=== PATIENT | male | born 1990 | race African-American/Black ===

== ENCOUNTER 2018-11-09 10:40 | Emergency (ER) | payer SELFPAY ==
--- NOTE | 2018-11-09 11:36 | ER Document Report ---
ED General - General Chief Complaint: Foot Pain Stated Complaint: TOE PAIN Time Seen by Provider: 11/09/18 11:30 Primary Care Provider: JANET PEARCE [Primary Care Provider] - Follow up as needed TRAVEL OUTSIDE OF THE [place] IN LAST 30 DAYS: No - HPI Patient complains to provider of: Bilateral toe pain Notes: Patient coming in complaining of bilateral pain in his bilateral feet between the webbing of his toes bilaterally. Patient states works at [employer] feels constantly has water on his feet patient states difficult time having his feet dry concerned that they are getting infected states some cracks in the skin with some bleeding. Patient denies history of diabetes or any other immunocompromise state. Patient denies any trauma to the area denies fevers chills nausea vomiting diarrhea. - Related Data Allergies/Adverse Reactions: No Known Allergies Allergy (Verified 11/09/18 10:41) Past Medical History - Social History Smoking Status: Unknown if Ever Smoked Family History: Reviewed & Not Pertinent Pulmonary Medical History: Denies: Hx Asthma Endocrine Medical History: Denies: Hx Diabetes Mellitus Type 2, Hx Hypothyroidism GI Medical History: Denies: Hx Gastritis, Hx Gastroesophageal Reflux Disease Skin Medical History: Reports Hx MRSA - Immunizations Immunizations up to date: Yes Hx Diphtheria, Pertussis, Tetanus Vaccination: Yes Review of Systems - Review of Systems Constitutional: No symptoms reported EENT: No symptoms reported Cardiovascular: No symptoms reported Respiratory: No symptoms reported Gastrointestinal: No symptoms reported Genitourinary: No symptoms reported Male Genitourinary: No symptoms reported Musculoskeletal: No symptoms reported Skin: Other - Bilateral foot complaint Hematologic/Lymphatic: No symptoms reported Neurological/Psychological: No symptoms reported -: Yes All other systems reviewed and negative Physical Exam - Vital signs Vitals: Temp Pulse Resp BP Pulse Ox 98.3 F 83 17 153/86 H 99 11/09/18 10:57 11/09/18 10:57 11/09/18 10:57 11/09/18 10:57 11/09/18 10:57 Interpretation: Normal - General General appearance: Appears well, Alert - HEENT Head: Normocephalic, Atraumatic Eyes: Normal Pupils: PERRL - Respiratory Respiratory status: No respiratory distress Chest status: Nontender Breath sounds: Normal Chest palpation: Normal - Cardiovascular Rhythm: Regular Heart sounds: Normal auscultation Murmur: No - Abdominal Inspection: Normal Distension: No distension Bowel sounds: Normal Tenderness: Nontender Organomegaly: No organomegaly - Back Back: Normal, Nontender - Extremities General upper extremity: Normal inspection, Nontender, Normal color, Normal ROM, Normal temperature General lower extremity: Nontender, Normal color, Normal ROM, Normal temperature, Normal weight bearing. No: Normal inspection - Inspection of the skin between the toes bilateral feet shows signs concerns of possible fungal infection with discoloration of the skin some excoriation and cracking of the skin - Neurological Neuro grossly intact: Yes Cognition: Normal Orientation: AAOx4 Fritz Coma Scale Eye Opening: Spontaneous Fritz Coma Scale Verbal: Oriented Fritz Coma Scale Motor: Obeys Commands Fritz Coma Scale Total: 15 Speech: Normal Motor strength normal: LUE, RUE, LLE, RLE Sensory: Normal - Psychological Associated symptoms: Normal affect, Normal mood - Skin Skin Temperature: Warm Skin Moisture: Dry Skin Color: Normal Course - Re-evaluation Re-evalutation: 11/09/18 15:05 Patient was to have a fungal infection patient will be treated with Lotrimin recommended Goldbond powder to keep his feet dry. Patient requesting work note - Vital Signs Vital signs: Temp Pulse Resp BP Pulse Ox 98.0 F 73 16 135/78 H 99 11/09/18 13:10 11/09/18 13:10 11/09/18 13:10 11/09/18 13:10 11/09/18 13:10 Discharge - Discharge Clinical Impression: Athletes foot Qualifiers: Laterality: bilateral Qualified Code(s): B35.3 - Tinea pedis Disposition: HOME, SELF-CARE Instructions: Athletes Foot ([facility]) Additional Instructions: Please keep your feet clean and dry I would recommend instilling Goldbond powder into your socks to aid with the final flexion that we see on also recommend applying Lotrimin cream once a day for the next 4 weeks Prescriptions: Clotrimazole 1% Topical [Lotrimin 1% Topical Solution] 1 applic TP DAILY #10 ml Menthol [Gold [place] Medicated Foot] 283 gm TP DAILY #1 bottle Forms: Return to Work Referrals: LOCALMD,NO [Primary Care Provider] - Follow up as needed
[2018-11-09 13:11] VITALS: BP 135/78
== END 2018-11-09 13:23 | disposition home or self-care (01) ==
LOC: ER 10:40
DX: B35.3 Tinea pedis (principal); Z86.14 Personal history of Methicillin resistant Staphylococcus aureus infection
CPT/HCPCS: 99283

== ENCOUNTER 2020-06-06 16:10 | Emergency (ER) | payer SELFPAY ==
[2020-06-06 16:29] VITALS: BP 133/73
--- NOTE | 2020-06-06 16:54 | ER Document Report ---
ED Extremity Problem, Lower - General Chief Complaint: Foot Pain Stated Complaint: FOOT PAIN Time Seen by Provider: 06/06/20 16:36 Primary Care Provider: SUZE VALENCIA DPM [ACTIVE STAFF] - Follow up as needed JANET PEARCE [Primary Care Provider] - Follow up as needed Mode of Arrival: Ambulatory Information source: Patient Notes: 29-year-old male presented to ED for complaint of athlete's foot to both feet for a while now. He states he is been using bleach water alcohol and Epson salt and they do not seem to be getting any better. He states he has not tried any [id number] athlete's foot medications. He states he does stand on his feet a lot and states that it hurts when he stands on his feet all day with the athlete's foot. REVIEW OF SYSTEMS: CONSTITUTIONAL : Denies fever, chills, or sweats. Denies recent illness. SKIN: Whitish scaly, fissuring, maceration of the interdigital and sub-digital areas on both feet HEMATOLOGIC : Denies easy bruising or bleeding. LYMPHATIC: Denies swollen, enlarged glands. NEUROLOGICAL: Denies altered mental status or loss of consciousness. Denies headache. Denies weakness or paralysis or loss of use of either side. Denies problems with gait or speech. Denies sensory or motor loss. PSYCHIATRIC: Denies anxiety or stress or depression. ALL OTHER SYSTEMS REVIEWED AND NEGATIVE. PHYSICAL EXAMINATION: GENERAL: Well-appearing, well-nourished and in no acute distress. HEAD: Atraumatic, normocephalic. EYES: Pupils equal round extraocular movements intact, conjunctiva are normal. ENT: Nares patent NECK: Normal range of motion LUNGS: No respiratory distress Musculoskeletal: Normal range of motion NEUROLOGICAL: Normal speech, normal gait. PSYCH: Normal mood, normal affect. SKIN: Whitish scaly, fissuring, maceration of the interdigital and sub-digital areas on both feet TRAVEL OUTSIDE OF THE [place] IN LAST 30 DAYS: No - HPI Patient complains to provider of: Pain Location: Foot Occurred: Other - Several weeks Onset/Duration: Persistent Quality of pain: Burning Severity: Mild Pain Level: 2 Context: Wearing shoes Recent injury: No Associated symptoms: Other - Whitish scaly, fissuring, maceration of the interdigital and sub-digital areas on both feet Exacerbated by: Hanging down, Movement, Walking Relieved by: Nothing - Related Data Allergies/Adverse Reactions: No Known Allergies Allergy (Verified 11/09/18 10:41) Past Medical History - General Information source: Patient - Social History Smoking Status: Current Every Day Smoker Cigarette use (# per day): Yes - 1/3 pack/day Smoking Education Provided: Yes - Diminished Frequency of alcohol use: Occasional Drug Abuse: None Family History: Reviewed & Not Pertinent Patient has suicidal ideation: No Patient has homicidal ideation: No - Past Medical History Cardiac Medical History: Reports: None Pulmonary Medical History: Reports: None EENT Medical History: Reports: None Neurological Medical History: Reports: None Endocrine Medical History: Reports: None Renal/ Medical History: Reports: None Malignancy Medical History: Reports None GI Medical History: Reports: None Musculoskeletal Medical History: Reports None Skin Medical History: Reports Hx MRSA Psychiatric Medical History: Reports: None Traumatic Medical History: Reports: None Infectious Medical History: Reports: None Surgical Hx: Negative Past Surgical History: Reports: None - Immunizations Immunizations up to date: Yes Hx Diphtheria, Pertussis, Tetanus Vaccination: Yes Physical Exam - Vital signs Vitals: Temp Pulse Resp BP Pulse Ox 98.7 F 75 16 133/73 H 98 06/06/20 16:28 06/06/20 16:28 06/06/20 16:28 06/06/20 16:28 06/06/20 16:28 Course - Vital Signs Vital signs: Temp Pulse Resp BP Pulse Ox 98.7 F 75 16 133/73 H 98 06/06/20 16:28 06/06/20 16:28 06/06/20 16:28 06/06/20 16:28 06/06/20 16:28 Discharge - Discharge Clinical Impression: Athlete's foot bilateral Condition: Stable Disposition: HOME, SELF-CARE Additional Instructions: Athletes Foot Athlete's foot is a fungus infection of the skin. It typically causes cracking and peeling between the toes. The fungus thrives in a damp, warm envi ronment. You should wash between the toes twice daily with a mild soap (like Phisoderm, Ivory, or Neutrogena). Dry between the toes thoroughly but carefully, and allow to air-dry several minutes. Then apply antifungal medication. If your feet sweat during work or sports, you should put cotton between the toes, changing it every hour or two. Frequent changes of socks are a must, both while the infection is present and afterward. Complete healing may take two or three weeks. Recurrences are common. Keep the spaces between the toes as clean and dry as possible. If increasing swelling and redness develops, if red streaks are seen, or if fever or chilling occur, return immediately for re-evaluation. We will write you a prescription for some Lamisil. If you can afford Lamisil get deformities to suggest an [id number] athlete's foot medicine. If the [id number]-[id number] medicine and the Lamisil do not work please follow-up with the alterations workroom clerk. Lamisil is a fungus sometimes it takes both creams and oral medications. The medications that she take orally need to be monitored by a primary care or alterations workroom clerk. Follow-Up Care Although no definite follow-up visit has been scheduled for you, you should return if there is unexpected worsening or a significant change in your symptoms. Prescriptions: Terbinafine HCl [Lamisil At] 30 gm TP BID 14 Days #60 cream..g. Forms: Elevated Blood Pressure, Smoking Cessation Education, Return to Work Referrals: LOCAL,NO [Primary Care Provider] - Follow up as needed SUZE VALENCIA DPM [ACTIVE STAFF] - Follow up as needed
== END 2020-06-06 16:59 | disposition home or self-care (01) ==
LOC: ER 16:10
DX: B35.3 Tinea pedis (principal); F17.210 Nicotine dependence, cigarettes, uncomplicated
CPT/HCPCS: 99283